=== PATIENT | female | born 1990 | race Caucasian/White ===

== ENCOUNTER 2024-01-31 01:38 | Emergency (ER) | payer BC, SELFPAY ==
[2024-01-31 01:45] VITALS: BP 139/105; PULSE 78; RESP 22; TEMP 36.7; O2SAT 100
--- NOTE | 2024-01-31 01:52 | ED.GENADULT ---
HPI - General Adult General Chief complaint: Head Injury Stated complaint: head injury Time Seen by Provider: 01/31/24 01:44 History of Present Illness HPI narrative: Patient 33-year-old female presents emergency department with chief complaint of head injury. Patient reports she fell on concrete reports no loss of consciousness reports no nausea vomiting reports that she has about a 4 cm laceration to her scalp. The patient is unsure of her last tetanus status Related Data Allergies Allergy/AdvReac Type Severity Reaction Status Date / Time Penicillins Allergy Anaphylaxis Verified 01/31/24 01:50 Review of Systems Review of Systems: A 10 system review of systems was completed on the patient and is negative except for what is stated in the HPI. Nursing and ancillary documentation was reviewed. [facility] Social History Social History Smoking status: Current every day smoker Exam Narrative: GENERAL: Well-appearing, well-nourished, and in no acute distress. HEAD: Normocephalic, 4 cm laceration of the occipital region of the scalp. EYES: PERRLA and EOMI. Small bruise to the left orbit ENT: Nares clear, no rhinorrhea or epistaxis. Mucous membranes moist. NECK: Supple. CHEST: Clear to auscultation. No respiratory distress. HEART: Regular rate and rhythm. No murmur heard. Normal peripheral pulses. ABDOMEN: Soft, nontender, nondistended, normal active bowel sounds. EXTREMITIES: Normal range of motion. No edema. SKIN: Warm, dry, no rash. NEURO: No focal deficits. Alert and oriented x3. PSYCH: Normal mood and affect. Course Vital Signs Vital signs: Vital Signs Temperature 36.7 C 01/31/24 01:45 Pulse Rate 78 01/31/24 01:45 Respiratory Rate 22 H 01/31/24 01:45 Blood Pressure 139/105 H 01/31/24 01:45 Pulse Oximetry 100 01/31/24 01:45 Oxygen Delivery Room Air 01/31/24 01:45 Temperature 36.7 C 01/31/24 01:45 Pulse Rate 78 01/31/24 01:45 Respiratory Rate 22 H 01/31/24 01:45 Blood Pressure 139/105 H 01/31/24 01:45 Pulse Oximetry 100 01/31/24 01:45 Oxygen Delivery Room Air 01/31/24 01:45 Procedures Laceration Laceration 1: Date: 01/31/24 Time: 01:53 Site: scalp Size (cm): 4 Description: linear Local Anesthetic: none Pre-repair: wound explored and irrigated ====== Skin Level ====== Skin layer closed with: mary Number of sutures: 5 ====== Subcutaneous Layer ====== ====== Muscle Layer ====== ====== Tendon Layer ====== Medical Decision Making MDM Narrative Medical decision making narrative: Differential diagnosis includes head injury, scalp laceration, Patient is alert oriented GCS 15 shows no signs of intracranial pathology Wound was closed using mary Patient be discharged home to follow-up the primary care provider Vital Signs Vital Signs: Vital Signs Temperature 36.7 C 01/31/24 01:45 Pulse Rate 78 01/31/24 01:45 Respiratory Rate 22 H 01/31/24 01:45 Blood Pressure 139/105 H 01/31/24 01:45 Pulse Oximetry 100 01/31/24 01:45 Oxygen Delivery Room Air 01/31/24 01:45 Temperature 36.7 C 01/31/24 01:45 Pulse Rate 78 01/31/24 01:45 Respiratory Rate 22 H 01/31/24 01:45 Blood Pressure 139/105 H 01/31/24 01:45 Pulse Oximetry 100 01/31/24 01:45 Oxygen Delivery Room Air 01/31/24 01:45 Discharge Plan Discharge Clinical Impression: Closed head injury, Laceration of scalp Patient Disposition: Home, Self-Care Condition: Stable Instructions: Antibiotic Form, Laceration (ED), Head Injury (ED), Staple Care (ED) Additional Instructions: Please have the mary removed in 7-10 days Follow-up/Referrals: Lionel Guadalupe MD [Physician] - UNKNOWN,DOCTOR [Primary Care Provider] - Time of Disposition:
[2024-01-31] MEDS: TETANUS,DIPHTHERIA,AC PERTUSSIS ADULT (0.5 ML) BOOSTRIX IM (02:13)
== END 2024-01-31 02:17 | disposition home or self-care (01) ==
LOC: ANHED 02:06
PROVIDERS: Emergency Provider Emergency Medicine
DX: S01.01XA Laceration without foreign body of scalp, initial encounter (principal); Z23 Encounter for immunization; F17.200 Nicotine dependence, unspecified, uncomplicated; W01.0XXA Fall on same level from slipping, tripping and stumbling without subsequent striking against object, initial encounter
CPT/HCPCS: 12002; 90471; 90715; 99283